=== PATIENT | female | born 1995 | race Caucasian/White ===

== ENCOUNTER 2017-01-25 03:15 | Inpatient (IN) | payer MEDICAID, OTHER ==
[2017-01-25] MEDS ORDERED: Sodium Chloride 0.9% 10 ML Syringe FLUSH PRN (08:37)
[2017-01-25] MEDS ORDERED: Nalbuphine 20 MG/1 ML Amp IVPUSH PRN (08:37)
[2017-01-25] MEDS ORDERED: Ondansetron 4 MG/2 ML SDV IVPUSH PRN ×2 (08:37→23:49)
--- NOTE | 2017-01-25 08:40 | PCM.LDHP ---
L&D History of Present Illness - General Date of Service: 01/25/17 Admit Problem/Dx: Patient Status Order with Admit Dx/Problem 01/25/17 08:38 Patient Status [ADT] Routine Admission Diagnosis/Problem Admission Diagnosis/Problem Normal in third trimester Source of Information: Patient History Limitations: Reports: No Limitations - History of Present Illness Introduction:: Patient is a 21 y/o at 41 1/7 wks who presents for IOL for dates. Doing well today. No contractions. Noting good FM. No other concerns. 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: : 1 Para: 0 LMP (Approximate): Psychiatric History: Reports: Anxiety, Depression Social & Family History - Family History Family Medical History: Noncontributory - Tobacco Use Smoking Status *Q: Former Smoker Years of Tobacco use: 6 Packs/Tins Daily: 1 Used Tobacco, but Quit: Yes Month Tobacco Last Used: <1 year - Caffeine Use Caffeine Use: Reports: Coffee - Alcohol Use Alcohol Use History: No - Recreational Drug Use Recreational Drug Use: Yes Drug Use in Last 12 Months: Yes Recreational Drug Type: Reports: Methamphetamine H&P Review of Systems - Review of Systems: Review Of Systems: See Below General: Reports: No Symptoms Pulmonary: Reports: No Symptoms Cardiovascular: Reports: No Symptoms Gastrointestinal: Reports: No Symptoms Genitourinary: Reports: No Symptoms Musculoskeletal: Reports: No Symptoms Psychiatric: Reports: Anxiety L&D Exam - Exam Exam: See Below - Vital Signs Vital Signs: Last Vital Signs Temp 36.9 C 01/25/17 07:45 Pulse 98 01/25/17 07:45 Resp 20 01/25/17 07:45 BP 131/89 01/25/17 07:45 Pulse Ox 99 01/25/17 07:45 Weight: 95.663 kg - OB Specific Contraction Intensity: Irritability Movement: Active Heart Tones: Present Heart Tones per Min: 135 Heart Rate (FHR) Variability: Moderate (6-25 bmp) Presentation: Vertex - Butcher Score Butcher Score Cervix Position: Posterior Butcher Score Consistency: Medium Butcher Score Effacement: 31-50% Butcher Score Dilation: 1-2 cm Butcher Score Infant's Station: -3 Butcher Score Total: 3 - Exam General: Alert, Oriented, Cooperative Lungs: Clear to Auscultation, Normal Respiratory Effort Cardiovascular: Regular Rate, Regular Rhythm GI/Abdominal Exam: Soft, Non-Tender Genitourinary: Normal external exam Extremities: Normal Inspection Skin: Warm, Dry, Intact - Patient Data Result Diagrams: 01/25/17 08:50 - Problem List (1) 41 weeks gestation of SNOMED Code(s): 64924457 ICD Code: Z3A.41 - 41 WEEKS GESTATION OF Status: Acute Current Visit: Yes (2) Imprisonment and other incarceration SNOMED Code(s): 99854884 ICD Code: Z65.1 - IMPRISONMENT AND OTHER INCARCERATION Status: Acute Current Visit: Yes Problem List Initiated/Reviewed/Updated: Yes Orders Last 24hrs: Active Orders 24 hr Category Date Time Status Patient Status [ADT] Routine ADT 01/25/17 08:38 Active Communication Order [RC] ASDIRECTED Care 01/25/17 08:37 Active Communication Order [RC] ASDIRECTED Care 01/25/17 08:37 Active Communication Order [RC] ASDIRECTED Care 01/25/17 08:37 Active Communication Order [RC] ASDIRECTED Care 01/25/17 08:37 Active Monitoring [RC] INTERMITTENT Care 01/25/17 08:37 Active Notify Provider [RC] ASDIRECTED Care 01/25/17 08:37 Active Notify Provider [RC] PRN Care 01/25/17 08:37 Active Peripheral IV Care [RC] . DIRECTED Care 01/25/17 08:38 Active Up ad Bharati [RC] ASDIRECTED Care 01/25/17 08:37 Active Vaginal Exam [RC] ASDIRECTED Care 01/25/17 08:37 Active Vital Signs [RC] ASDIRECTED Care 01/25/17 08:37 Active Vital Signs [RC] PER UNIT ROUTINE Care 01/25/17 08:37 Active Regular Diet [DIET] Diet 01/25/17 Lunch Active CBC W/O DIFF,HEMOGRAM [HEME] Routine Lab 01/25/17 08:37 Ordered TYPE AND SCREEN [BBK] Routine Lab 01/25/17 08:37 Ordered Lactated Ringers [Ringers, Lactated] 1,000 ml Med 01/25/17 08:45 Ordered IV ASDIRECTED Misoprostol [Cytotec] Med 01/25/17 08:37 Ordered 25 mcg VAG Q4H PRN Nalbuphine [Nubain] Med 01/25/17 08:37 Ordered 10 mg IVPUSH Q2H PRN Ondansetron [Zofran] Med 01/25/17 08:37 Ordered 4 mg IVPUSH Q4H PRN Oxytocin/Lactated Ringers [Pitocin in LR 10 Units/1,000 Med 01/25/17 08:45 Ordered ML] 10 unit in 1,000 ml IV .CONTINUOUS Oxytocin/Lactated Ringers [Pitocin in LR 10 Units/1,000 Med 01/25/17 08:45 Ordered ML] 10 unit in 1,000 ml IV TITRATE Sodium Chloride 0.9% [Saline Flush] Med 01/25/17 08:37 Ordered 10 ml FLUSH ASDIRECTED PRN Electronic Heart Tones Internal [WOMSER] Per Unit Oth 01/25/17 08:37 Ordered Routine Peripheral IV Insertion Adult [OM.PC] Routine Oth 01/25/17 08:37 Ordered Resuscitation Status Routine Resus Stat 01/25/17 08:37 Ordered Assessment/Plan Comment:: 21 y/o at 41 1/7 wks who presents for IOL for dates * CBC and T&S * GBS negative, no need for antibiotics * Pain management per patient preference * Cytotec to start IOL. Villanueva bulb when able. Pitocin when able.
[2017-01-25] MEDS ORDERED: Oxytocin/Lactated Ringers 10 UNIT/1,000 ML BAG IV SCH ×2 (08:45)
[2017-01-25] MEDS: Misoprostol 25 MCG (1/4 of 100 MCG) Tab VAG PRN ×3 (08:55→18:06)
[2017-01-25] MEDS: Lactated Ringers 1,000 ML IV SCH ×2 (11:30→22:29)
--- NOTE | 2017-01-25 21:41 | PCM.PNLD ---
Labor Progress Note - VS & Meds Vital Signs: Last Vital Signs Temp 36.9 C 01/25/17 07:45 Pulse 98 01/25/17 07:45 Resp 20 01/25/17 07:45 BP 131/89 01/25/17 07:45 Pulse Ox 99 01/25/17 07:45 Active Medications: Current Medications Lactated Ringer's (Ringers, Lactated) 1,000 mls @ 40 mls/hr IV ASDIRECTED AVI Last Admin: 01/25/17 11:30 Dose: 40 mls/hr Oxytocin/Lactated Ringer's (Pitocin In Lr 10 Units/1,000 Ml) 10 unit in 1,000 mls @ 12 mls/hr IV TITRATE AVI; 2 MUNITS/MIN PRN Reason: Protocol Oxytocin/Lactated Ringer's (Pitocin In Lr 10 Units/1,000 Ml) 10 unit in 1,000 mls @ 500 mls/hr IV .CONTINUOUS AVI Nalbuphine HCl (Nubain) 10 mg IVPUSH Q2H PRN PRN Reason: Pain (moderate 4-6) Ondansetron HCl (Zofran) 4 mg IVPUSH Q4H PRN PRN Reason: Nausea/Vomiting Sodium Chloride (Saline Flush) 10 ml FLUSH ASDIRECTED PRN PRN Reason: Keep Vein Open Discontinued Medications Misoprostol (Cytotec) 25 mcg VAG Q4H PRN PRN Reason: cervical ripening Last Admin: 01/25/17 18:06 Dose: 25 mcg - Uterine Contractions Uterine Monitoring Mode: External Golva Contraction Intensity: Irritability Uterine Resting Tone: Soft - Monitoring Monitor Mode: External Ultrasound Heart Rate (FHR) Variability: Moderate (6-25 bmp) Accelerations: Present, 10x10 (=/<32 wks) Decelerations: None Strip Review: Category I - Vaginal Exam Dilation (cm): 1 Effacement (Percent): 50 Station: -3 Cervical Position: Posterior - Labor Progress (Free Text) Labor Progress: Patient s/p 3 doses of cytotec. Most recent placed 2 hours ago. Villanueva bulb placed to facilitate induction process. Will place 4th cytotec in 2 hours. Afterwards will transition to pitocin.
[2017-01-25] MEDS ORDERED: Misoprostol 25 MCG (1/4 of 100 MCG) Tab VAG ONE (22:00)
[2017-01-25] MEDS ORDERED: Bupivacaine/fentaNYL/NS 100 ML Bag EPIDUR SCH (23:45)
[2017-01-25] MEDS ORDERED: diphenhydrAMINE 50 MG/ML SDV IVPUSH PRN (23:49)
[2017-01-25] MEDS ORDERED: ePHEDrine 50 MG/ML SDV IVPUSH PRN (23:49)
[2017-01-25] MEDS ORDERED: fentaNYL 100 MCG/2 ML SDV EPIDUR PRN (23:49)
--- NOTE | 2017-01-26 00:39 | PCM.PREANE ---
Preanesthetic Assessment - Procedure Proposed Procedure: BRIDGET - Anesthesia/Transfusion/Family Hx Anesthesia History: No Prior Anesthesia Family History of Anesthesia Reaction: No Transfusion History: No Prior Transfusion(s) - Review of Systems General: No Symptoms Pulmonary: No Symptoms Cardiovascular: No Symptoms Gastrointestinal: No Symptoms Neurological: No Symptoms Other: Reports: None - Physical Assessment NPO Status Date: 01/26/17 NPO Status Time: 00:05 O2 Sat by Pulse Oximetry: 99 Respiratory Rate: 20 Vital Signs: Last Vital Signs Temp 36.9 C 01/25/17 07:45 Pulse 98 01/25/17 07:45 Resp 20 01/25/17 07:45 BP 131/89 01/25/17 07:45 Pulse Ox 99 01/25/17 07:45 Height: 1.63 m Weight: 95.663 kg ASA Class: 2 Mental Status: Alert & Oriented x3 Airway Class: Mallampati = 1 Dentition: Reports: Normal Dentition Thyro-Mental Finger Breadths: 3 Mouth Opening Finger Breadths: 3 ROM/Head Extension: Full Lungs: Clear to Auscultation, Normal Respiratory Effort Cardiovascular: Regular Rate, Regular Rhythm - Lab Values: Laboratory Last Values WBC 8.46 K/mm3 (3.98-10.04) 01/25/17 08:50 RBC 3.98 M/mm3 (3.98-5.22) 01/25/17 08:50 Hgb 12.3 gm/L (11.2-15.7) 01/25/17 08:50 Hct 35.7 % (34.1-44.9) 01/25/17 08:50 MCV 89.7 fl (79.4-94.8) 01/25/17 08:50 MCH 30.9 pg (25.6-32.2) 01/25/17 08:50 MCHC 34.5 g/dl (32.2-35.5) 01/25/17 08:50 RDW Std Deviation 44.2 fL (36.4-46.3) 01/25/17 08:50 Plt Count 157 K/mm3 (182-369) L 01/25/17 08:50 MPV 11.5 fl (9.4-12.3) 01/25/17 08:50 Urine Color Yellow (Yellow) 01/25/17 08:40 Urine Appearance Clear (Clear) 01/25/17 08:40 Urine pH 7.0 (5.0-8.0) 01/25/17 08:40 Ur Specific Odonnell 1.025 (1.005-1.030) 01/25/17 08:40 Urine Protein Trace (Negative) H 01/25/17 08:40 Urine Glucose (UA) Negative (Negative) 01/25/17 08:40 Urine Ketones Negative (Negative) 01/25/17 08:40 Urine Occult Blood Negative (Negative) 01/25/17 08:40 Urine Nitrite Negative (Negative) 01/25/17 08:40 Urine Bilirubin Negative (Negative) 01/25/17 08:40 Urine Urobilinogen 0.2 (0.2-1.0) 01/25/17 08:40 Ur Leukocyte Esterase Negative (Negative) 01/25/17 08:40 Urine Opiates Screen Negative (NEGATIVE) 01/25/17 08:40 Ur Buprenorphine Scrn Negative (NEGATIVE) 01/25/17 08:40 Ur Oxycodone Screen Negative (NEGATIVE) 01/25/17 08:40 Urine Methadone Screen Negative (NEGATIVE) 01/25/17 08:40 Ur Propoxyphene Screen Negative (NEGATIVE) 01/25/17 08:40 Ur Barbiturates Screen Negative (NEGATIVE) 01/25/17 08:40 Ur Tricyclics Screen Negative (NEGATIVE) 01/25/17 08:40 Ur Phencyclidine Scrn Negative (NEGATIVE) 01/25/17 08:40 Ur Amphetamine Screen Negative (NEGATIVE) 01/25/17 08:40 U Methamphetamines Scrn Negative (NEGATIVE) 01/25/17 08:40 U Benzodiazepines Scrn Negative (NEGATIVE) 01/25/17 08:40 U Cocaine Metab Screen Negative (NEGATIVE) 01/25/17 08:40 U Marijuana (THC) Screen Negative (NEGATIVE) 01/25/17 08:40 MRSA (PCR) Negative 01/25/17 07:14 Blood Type A POSITIVE 01/25/17 08:50 Gel Antibody Screen Negative 01/25/17 08:50 - Allergies Allergies/Adverse Reactions: Allergies Allergy/AdvReac Type Severity Reaction Status Date / Time No Known Allergies 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 Current Meds: Current Medications Diphenhydramine HCl (Benadryl) 25 mg IVPUSH Q6H PRN PRN Reason: Pruritis Ephedrine Sulfate (Ephedrine Sulfate) 5 mg IVPUSH ASDIRECTED PRN PRN Reason: Hypotension Fentanyl (Sublimaze) 100 mcg EPIDUR Q3H PRN PRN Reason: Pain Last Admin: 01/26/17 00:19 Dose: 100 mcg Fentanyl/Bupivacaine HCl (Fentanyl/Bupivacaine/Ns 2 Mcg-0.125% 100 Ml) 100 ml EPIDUR ASDIRECTED AVI Last Admin: 01/26/17 00:19 Dose: 100 ml Lactated Ringer's (Ringers, Lactated) 1,000 mls @ 40 mls/hr IV ASDIRECTED AVI Last Admin: 01/25/17 22:29 Dose: 250 mls/hr Oxytocin/Lactated Ringer's (Pitocin In Lr 10 Units/1,000 Ml) 10 unit in 1,000 mls @ 12 mls/hr IV TITRATE AVI; 2 MUNITS/MIN PRN Reason: Protocol Oxytocin/Lactated Ringer's (Pitocin In Lr 10 Units/1,000 Ml) 10 unit in 1,000 mls @ 500 mls/hr IV .CONTINUOUS AVI Nalbuphine HCl (Nubain) 10 mg IVPUSH Q2H PRN PRN Reason: Pain (moderate 4-6) Ondansetron HCl (Zofran) 4 mg IVPUSH Q4H PRN PRN Reason: Nausea/Vomiting Ondansetron HCl (Zofran) 4 mg IVPUSH ONETIME PRN PRN Reason: Nausea/Vomiting Sodium Chloride (Saline Flush) 10 ml FLUSH ASDIRECTED PRN PRN Reason: Keep Vein Open Discontinued Medications Misoprostol (Cytotec) 25 mcg VAG Q4H PRN PRN Reason: cervical ripening Last Admin: 01/25/17 18:06 Dose: 25 mcg Misoprostol (Cytotec) 25 mcg VAG ONETIME ONE Stop: 01/25/17 22:01 Last Admin: 01/25/17 22:19 Dose: 25 mcg
--- NOTE | 2017-01-26 03:56 | PCM.DEL ---
L & D Note - General Info Date of Service: 01/26/17 - Delivery Note Cervical Ripening Method: Balloon Device, Misoprostil Delivery Outcome: Livebirth Delivery Method: Spontaneous Vaginal Delivery-Single Infant Delivery Mode: Spontaneous Presentation: Right Occiput Anterior (LYLY) Nuchal Cord: None Anesthesia Type: Epidural Amniotic Fluid Description: Clear Episiotomy Type: None Laceration: 2nd Degree, Perineal Suture type: Vicryl Suture size: 2-0 Placenta: Intact, Spontaneous Cord: 3 Vessels Estimated Blood Loss: 500 Resuscitation Needed: Yes : Suctioned, Bulb Syringe, Stimulated, Warmed, Garfield Used, Warmer Used Score 1 min: 5 Score 5 min: 9 Post Delivery Events: Shoulder Dystocia Delivery Comments (Free Text/Narrative):: Patient found to be complete and began pushing. With maternal pushing effort head delivered from an LYLY presentation. No nuchal cord present. With gentle downward traction the head did not deliver. Diagnosis of shoulder dystocia made. Patient legs placed in McRobert's and suprapubic pressure applied without delivery of the anterior shoulder. Attempt made to pass a hand on the anterior shoulder and rotate the fetus, but patient with significant discomfort and could not tolerate. A hand was then placed posteriorly and traction placed on the posterior arm. Arm did not deliver, but with this motion the fetus did rotate and delivery did occur. Total duration of dystocia about 60 seconds. Baby noted to be limp and so cord cut and clamped and baby taken immediately to warmer for assessment. Cord blood collected. Placenta allowed time to separate and expelled. Moderate amount of bleeding encountered and so sweep of the lower uterine segment performed to aid in uterine involution. Inspection of the perineum then showed a 2nd degree laceration which involved the skin of the perineum down to the rectum. Rectal exam performed to confirm no injury/disruption of the rectal mucosa. This tear was repaired with a running 2-0 vicryl in the typical fashion - Patient Data Vitals - Most Recent: Last Vital Signs Temp 36.9 C 01/25/17 07:45 Pulse 98 01/25/17 07:45 Resp 20 01/26/17 00:39 BP 131/89 01/25/17 07:45 Pulse Ox 99 01/26/17 00:39 Weight - Most Recent: 95.663 kg I&O - Last 24 Hours: Intake & Output 01/25/17 01/25/17 01/26/17 14:59 22:59 06:59 Intake Total 570 180 Balance 570 180 Lab Results Last 24 Hours: Laboratory Results - last 24 hr 01/25/17 01/25/17 01/25/17 Range/Units 07:14 08:40 08:40 WBC (3.98-10.04) K/mm3 RBC (3.98-5.22) M/mm3 Hgb (11.2-15.7) gm/L Hct (34.1-44.9) % MCV (79.4-94.8) fl MCH (25.6-32.2) pg MCHC (32.2-35.5) g/dl RDW Std Deviation (36.4-46.3) fL Plt Count (182-369) K/mm3 MPV (9.4-12.3) fl Urine Color Yellow (Yellow) Urine Appearance Clear (Clear) Urine pH 7.0 (5.0-8.0) Ur Specific Clifford 1.025 (1.005-1.030) Urine Protein Trace H (Negative) Urine Glucose (UA) Negative (Negative) Urine Ketones Negative (Negative) Urine Occult Blood Negative (Negative) Urine Nitrite Negative (Negative) Urine Bilirubin Negative (Negative) Urine Urobilinogen 0.2 (0.2-1.0) Ur Leukocyte Esterase Negative (Negative) Urine Opiates Screen Negative (NEGATIVE) Ur Buprenorphine Scrn Negative (NEGATIVE) Ur Oxycodone Screen Negative (NEGATIVE) Urine Methadone Screen Negative (NEGATIVE) Ur Propoxyphene Screen Negative (NEGATIVE) Ur Barbiturates Screen Negative (NEGATIVE) Ur Tricyclics Screen Negative (NEGATIVE) Ur Phencyclidine Scrn Negative (NEGATIVE) Ur Amphetamine Screen Negative (NEGATIVE) U Methamphetamines Scrn Negative (NEGATIVE) U Benzodiazepines Scrn Negative (NEGATIVE) U Cocaine Metab Screen Negative (NEGATIVE) U Marijuana (THC) Screen Negative (NEGATIVE) MRSA (PCR) Negative Blood Type Gel Antibody Screen 01/25/17 01/25/17 Range/Units 08:50 08:50 WBC 8.46 (3.98-10.04) K/mm3 RBC 3.98 (3.98-5.22) M/mm3 Hgb 12.3 (11.2-15.7) gm/L Hct 35.7 (34.1-44.9) % MCV 89.7 (79.4-94.8) fl MCH 30.9 (25.6-32.2) pg MCHC 34.5 (32.2-35.5) g/dl RDW Std Deviation 44.2 (36.4-46.3) fL Plt Count 157 L (182-369) K/mm3 MPV 11.5 (9.4-12.3) fl Urine Color (Yellow) Urine Appearance (Clear) Urine pH (5.0-8.0) Ur Specific Clifford (1.005-1.030) Urine Protein (Negative) Urine Glucose (UA) (Negative) Urine Ketones (Negative) Urine Occult Blood (Negative) Urine Nitrite (Negative) Urine Bilirubin (Negative) Urine Urobilinogen (0.2-1.0) Ur Leukocyte Esterase (Negative) Urine Opiates Screen (NEGATIVE) Ur Buprenorphine Scrn (NEGATIVE) Ur Oxycodone Screen (NEGATIVE) Urine Methadone Screen (NEGATIVE) Ur Propoxyphene Screen (NEGATIVE) Ur Barbiturates Screen (NEGATIVE) Ur Tricyclics Screen (NEGATIVE) Ur Phencyclidine Scrn (NEGATIVE) Ur Amphetamine Screen (NEGATIVE) U Methamphetamines Scrn (NEGATIVE) U Benzodiazepines Scrn (NEGATIVE) U Cocaine Metab Screen (NEGATIVE) U Marijuana (THC) Screen (NEGATIVE) MRSA (PCR) Blood Type A POSITIVE Gel Antibody Screen Negative Med Orders - Current: Current Medications Diphenhydramine HCl (Benadryl) 25 mg IVPUSH Q6H PRN PRN Reason: Pruritis Ephedrine Sulfate (Ephedrine Sulfate) 5 mg IVPUSH ASDIRECTED PRN PRN Reason: Hypotension Fentanyl (Sublimaze) 100 mcg EPIDUR Q3H PRN PRN Reason: Pain Last Admin: 01/26/17 00:19 Dose: 100 mcg Fentanyl/Bupivacaine HCl (Fentanyl/Bupivacaine/Ns 2 Mcg-0.125% 100 Ml) 100 ml EPIDUR ASDIRECTED AVI Last Admin: 01/26/17 00:19 Dose: 100 ml Lactated Ringer's (Ringers, Lactated) 1,000 mls @ 40 mls/hr IV ASDIRECTED AVI Last Admin: 01/25/17 22:29 Dose: 250 mls/hr Oxytocin/Lactated Ringer's (Pitocin In Lr 10 Units/1,000 Ml) 10 unit in 1,000 mls @ 12 mls/hr IV TITRATE AVI; 2 MUNITS/MIN PRN Reason: Protocol Oxytocin/Lactated Ringer's (Pitocin In Lr 10 Units/1,000 Ml) 10 unit in 1,000 mls @ 500 mls/hr IV .CONTINUOUS AVI Nalbuphine HCl (Nubain) 10 mg IVPUSH Q2H PRN PRN Reason: Pain (moderate 4-6) Ondansetron HCl (Zofran) 4 mg IVPUSH Q4H PRN PRN Reason: Nausea/Vomiting Ondansetron HCl (Zofran) 4 mg IVPUSH ONETIME PRN PRN Reason: Nausea/Vomiting Sodium Chloride (Saline Flush) 10 ml FLUSH ASDIRECTED PRN PRN Reason: Keep Vein Open Discontinued Medications Misoprostol (Cytotec) 25 mcg VAG Q4H PRN PRN Reason: cervical ripening Last Admin: 01/25/17 18:06 Dose: 25 mcg Misoprostol (Cytotec) 25 mcg VAG ONETIME ONE Stop: 01/25/17 22:01 Last Admin: 01/25/17 22:19 Dose: 25 mcg - Problem List & Annotations (1) 41 weeks gestation of SNOMED Code(s): 75886130 Code(s): Z3A.41 - 41 WEEKS GESTATION OF Status: Acute Current Visit: Yes (2) Imprisonment and other incarceration SNOMED Code(s): 87337354 Code(s): Z65.1 - IMPRISONMENT AND OTHER INCARCERATION Status: Acute Current Visit: Yes (3) Shoulder dystocia during labor and delivery, delivered SNOMED Code(s): 39569029 Code(s): O66.0 - OBSTRUCTED LABOR DUE TO SHOULDER DYSTOCIA Status: Acute Current Visit: Yes (4) Vaginal delivery SNOMED Code(s): 093659075 Code(s): O80 - ENCOUNTER FOR FULL-TERM UNCOMPLICATED DELIVERY Status: Acute Current Visit: Yes - Problem List Review Problem List Initiated/Reviewed/Updated: Yes - My Orders Last 24 Hours: My Active Orders 01/25/17 08:37 Nalbuphine [Nubain] 10 mg IVPUSH Q2H PRN Ondansetron [Zofran] 4 mg IVPUSH Q4H PRN Sodium Chloride 0.9% [Saline Flush] 10 ml FLUSH ASDIRECTED PRN Electronic Heart Tones Internal [WOMSER] Per Unit Routine Peripheral IV Insertion Adult [OM.PC] Routine Resuscitation Status Routine 01/25/17 08:38 Patient Status [ADT] Routine Peripheral IV Care [RC] . DIRECTED 01/25/17 08:45 Lactated Ringers [Ringers, Lactated] 1,000 ml IV ASDIRECTED Oxytocin/Lactated Ringers [Pitocin in LR 10 Units/1,000 ML] 10 unit in 1,000 ml IV .CONTINUOUS Oxytocin/Lactated Ringers [Pitocin in LR 10 Units/1,000 ML] 10 unit in 1,000 ml IV TITRATE 01/25/17 19:06 Consult to Boat Person [CONS] Routine 01/25/17 Lunch Regular Diet [DIET] - Assessment Assessment:: 21 y/o G1 now P1001 PPD#0 from [facility] at 41 2/7 wks - Plan Plan:: * Routine cares * Bottle feeding * Reviewed risk of recurrence of shoulder dystocia * Discharge home tomorrow
[2017-01-26] MEDS ORDERED: Lanolin 100% Cream 7 GM Tube TOP PRN (04:09)
[2017-01-26] MEDS ORDERED: Witch Hazel Medicated Pads 100/Jar TOP PRN (04:09)
[2017-01-26] MEDS ORDERED: Acetaminophen 325 MG Tab PO PRN (04:09)
[2017-01-26] MEDS ORDERED: Docusate Sodium 100 MG Cap PO PRN (04:09)
[2017-01-26] MEDS: Benzocaine/Menthol 20%-0.5% Spray 56 GM Canister TOP PRN (04:30)
[2017-01-26] MEDS: Ibuprofen 600 MG Tab PO PRN ×3 (04:32→18:56)
--- NOTE | 2017-01-26 07:51 | PCM48HPAN ---
Post Anesthesia Note - EVALUATION WITHIN 48HRS OF ANESTHETIC Vital Signs in Normal Range: Yes Patient Participated in Evaluation: Yes Respiratory Function Stable: Yes Airway Patent: Yes Cardiovascular Function Stable: Yes Hydration Status Stable: Yes Pain Control Satisfactory: Yes Nausea and Vomiting Control Satisfactory: Yes Mental Status Recovered: Yes
[2017-01-26] MEDS ORDERED: FLU Vacc QS 2017-18 (6mos UP)/PF 60 MCG/0.5 ML Syringe IM ONE (20:10)
[2017-01-27] MEDS: Ibuprofen 600 MG Tab PO PRN (05:04)
--- NOTE | 2017-01-27 07:08 | PCM.PNPP ---
- General Info Date of Service: 01/27/17 Functional Status: Reports: Pain Controlled, Tolerating Diet, Ambulating, Urinating - Review of Systems General: Reports: No Symptoms Pulmonary: Reports: No Symptoms Cardiovascular: Reports: No Symptoms Gastrointestinal: Reports: No Symptoms Genitourinary: Reports: Other (Some discomfort in perineum, but manageable ) - Patient Data Vital Signs - Most Recent: Last Vital Signs Temp 36.7 C 01/27/17 04:00 Pulse 70 01/27/17 03:58 Resp 20 01/27/17 03:58 BP 110/72 01/27/17 04:00 Pulse Ox 97 01/27/17 03:58 Weight - Most Recent: 95.663 kg I&O - Last 24 Hours: Intake & Output 01/26/17 01/27/17 01/27/17 22:59 06:59 14:59 Intake Total 600 Balance 600 Med Orders - Current: Current Medications Acetaminophen (Tylenol) 650 mg PO Q4H PRN PRN Reason: mild pain or fever Last Admin: 01/26/17 20:22 Dose: 650 mg Benzocaine/Menthol (Dermoplast Pain Relief [place]) 0 gm TOP ASDIRECTED PRN PRN Reason: Perineal Comfort Measure Last Admin: 01/26/17 04:30 Dose: 1 applic Docusate Sodium (Colace) 100 mg PO BID PRN PRN Reason: Constipation Emollient Ointment (Lansinoh Hpa) 0 gm TOP ASDIRECTED PRN PRN Reason: Sore Nipples Ibuprofen (Motrin) 600 mg PO Q6H PRN PRN Reason: Mild pain or fever Last Admin: 01/27/17 05:04 Dose: 600 mg Witch Mallory (Tucks) 1 pad TOP ASDIRECTED PRN PRN Reason: Hemorrhoid pain Last Admin: 01/26/17 04:31 Dose: 1 applic Discontinued Medications Diphenhydramine HCl (Benadryl) 25 mg IVPUSH Q6H PRN PRN Reason: Pruritis Ephedrine Sulfate (Ephedrine Sulfate) 5 mg IVPUSH ASDIRECTED PRN PRN Reason: Hypotension Fentanyl (Sublimaze) 100 mcg EPIDUR Q3H PRN PRN Reason: Pain Last Admin: 01/26/17 00:19 Dose: 100 mcg Fentanyl/Bupivacaine HCl (Fentanyl/Bupivacaine/Ns 2 Mcg-0.125% 100 Ml) 100 ml EPIDUR ASDIRECTED [facility]I Last Admin: 01/26/17 00:19 Dose: 100 ml Lactated Ringer's (Ringers, Lactated) 1,000 mls @ 40 mls/hr IV ASDIRECTED [facility]I Last Admin: 01/25/17 22:29 Dose: 250 mls/hr Oxytocin/Lactated Ringer's (Pitocin In Lr 10 Units/1,000 Ml) 10 unit in 1,000 mls @ 12 mls/hr IV TITRATE AVI; 2 MUNITS/MIN PRN Reason: Protocol Oxytocin/Lactated Ringer's (Pitocin In Lr 10 Units/1,000 Ml) 10 unit in 1,000 mls @ 500 mls/hr IV .CONTINUOUS AVI Last Admin: 01/26/17 03:15 Dose: 500 mls/hr Influenza Virus Vaccine (Flulaval Quad [id number]) 60 mcg IM .ONCE ONE Stop: 01/26/17 20:11 Last Admin: 01/26/17 20:13 Dose: 60 mcg Misoprostol (Cytotec) 25 mcg VAG Q4H PRN PRN Reason: cervical ripening Last Admin: 01/25/17 18:06 Dose: 25 mcg Misoprostol (Cytotec) 25 mcg VAG ONETIME ONE Stop: 01/25/17 22:01 Last Admin: 01/25/17 22:19 Dose: 25 mcg Nalbuphine HCl (Nubain) 10 mg IVPUSH Q2H PRN PRN Reason: Pain (moderate 4-6) Ondansetron HCl (Zofran) 4 mg IVPUSH Q4H PRN PRN Reason: Nausea/Vomiting Ondansetron HCl (Zofran) 4 mg IVPUSH ONETIME PRN PRN Reason: Nausea/Vomiting Sodium Chloride (Saline Flush) 10 ml FLUSH ASDIRECTED PRN PRN Reason: Keep Vein Open - Infant Interaction Disposition, : in Room with Family Infant Interaction: Holding Feeding: Bottle Fed Support Person: Mother, Other (see below) - Recovery Exam Fundal Tone: Firm Fundal Level: 2 Fingerbreadths Below Umbilicus Fundal Placement: Midline Lochia Amount: Small Lochia Color: Rubra/Red Perineum Description: Edematous, Other (see below) Other Perinuem Description: Second degree with repair Episiotomy/Laceration: Approximated Bladder Status: Voiding Urinary Elimination: Voided - Exam General: Alert, Oriented, Cooperative GI/Abdominal Exam: Soft, Non-Tender Extremities: Normal Inspection - Problem List & Annotations (1) 41 weeks gestation of SNOMED Code(s): 76114821 Code(s): Z3A.41 - 41 WEEKS GESTATION OF Status: Acute (2) Imprisonment and other incarceration SNOMED Code(s): 73136140 Code(s): Z65.1 - IMPRISONMENT AND OTHER INCARCERATION Status: Acute (3) Shoulder dystocia during labor and delivery, delivered SNOMED Code(s): 05518913 Code(s): O66.0 - OBSTRUCTED LABOR DUE TO SHOULDER DYSTOCIA Status: Acute (4) Vaginal delivery SNOMED Code(s): 301577794 Code(s): O80 - ENCOUNTER FOR FULL-TERM UNCOMPLICATED DELIVERY Status: Acute - Problem List Review Problem List Initiated/Reviewed/Updated: Yes - My Orders Last 24 Hours: My Active Orders 01/26/17 Breakfast Regular Diet [DIET] 01/27/17 04:09 Heat Therapy [OM.PC] PRN - Assessment Assessment:: 21 y/o G1 now P1001 PPD#1 from [facility] at 41 2/7 wks - Plan Plan:: * Routine cares * Bottle feeding * Previously reviewed risk of recurrence of shoulder dystocia. She has no follow up questions today * Discharge today
--- NOTE | 2017-01-27 07:09 | PCM.DCSUM1 ---
Discharge Summary - Discharge Data Discharge Date: 01/27/17 Discharge Disposition: DC/Tfer to [facility] Enf 21 Condition: Good - Discharge Diagnosis/Problem(s) (1) 41 weeks gestation of SNOMED Code(s): 05822094 ICD Code: Z3A.41 - 41 WEEKS GESTATION OF Status: Acute (2) Imprisonment and other incarceration SNOMED Code(s): 84728696 ICD Code: Z65.1 - IMPRISONMENT AND OTHER INCARCERATION Status: Acute (3) Shoulder dystocia during labor and delivery, delivered SNOMED Code(s): 32553151 ICD Code: O66.0 - OBSTRUCTED LABOR DUE TO SHOULDER DYSTOCIA Status: Acute (4) Vaginal delivery SNOMED Code(s): 993472555 ICD Code: O80 - ENCOUNTER FOR FULL-TERM UNCOMPLICATED DELIVERY Status: Acute - Patient Summary/Data Complications: None Consults: Consultations 01/26/17 05:30 Consult to [employer] [CONS] Routine Recommended Follow-up Testing/Procedures: Follow up in 4-6 weeks for check Hospital Course: Patient is a 21 y/o at 41 1/7 wks who presented for IOL. This was done with cytotec and schumacher bulb. She did not require further augmentation. She progressed well to complete dilation and underwent a vaginal delivery complicated by a 60 second shoulder dystocia. See delivery note for full details. she did well and was discharged back to her correctional facility on PPD#1 - Patient Instructions Diet: Regular Diet as Tolerated Activity: As Tolerated Activity, Other: Pelvic Rest for 6 weeks Driving: May Drive Today Showering/Bathing: May Shower Notify Provider of: Fever, Increased Pain, Swelling and Redness, Drainage, Nausea and/or Vomiting - Discharge Plan Home Medications: Home Meds Docusate Sodium [Colace] 100 mg PO BID PRN cap 01/26/17 [Rx] Ibuprofen [IJD: Ibuprofen] 600 mg PO Q6H PRN tablet 01/26/17 [Rx] Patient Handouts: Vaginal Delivery, Care After Referrals: Rehana Gonzalez MD [Primary Care Provider] - (5-6 weeks for check ) - Discharge Summary/Plan Comment DC Time >30 min.: No - Patient Data Vitals - Most Recent: Last Vital Signs Temp 36.7 C 01/27/17 04:00 Pulse 70 01/27/17 03:58 Resp 20 01/27/17 03:58 BP 110/72 01/27/17 04:00 Pulse Ox 97 01/27/17 03:58 Weight - Most Recent: 95.663 kg I&O - Last 24 hours: Intake & Output 01/26/17 01/27/17 01/27/17 22:59 06:59 14:59 Intake Total 600 Balance 600 Med Orders - Current: Current Medications Acetaminophen (Tylenol) 650 mg PO Q4H PRN PRN Reason: mild pain or fever Last Admin: 01/26/17 20:22 Dose: 650 mg Benzocaine/Menthol (Dermoplast Pain Relief [place]) 0 gm TOP ASDIRECTED PRN PRN Reason: Perineal Comfort Measure Last Admin: 01/26/17 04:30 Dose: 1 applic Docusate Sodium (Colace) 100 mg PO BID PRN PRN Reason: Constipation Emollient Ointment (Lansinoh Hpa) 0 gm TOP ASDIRECTED PRN PRN Reason: Sore Nipples Ibuprofen (Motrin) 600 mg PO Q6H PRN PRN Reason: Mild pain or fever Last Admin: 01/27/17 05:04 Dose: 600 mg Witch Mallory (Tucks) 1 pad TOP ASDIRECTED PRN PRN Reason: Hemorrhoid pain Last Admin: 01/26/17 04:31 Dose: 1 applic Discontinued Medications Diphenhydramine HCl (Benadryl) 25 mg IVPUSH Q6H PRN PRN Reason: Pruritis Ephedrine Sulfate (Ephedrine Sulfate) 5 mg IVPUSH ASDIRECTED PRN PRN Reason: Hypotension Fentanyl (Sublimaze) 100 mcg EPIDUR Q3H PRN PRN Reason: Pain Last Admin: 01/26/17 00:19 Dose: 100 mcg Fentanyl/Bupivacaine HCl (Fentanyl/Bupivacaine/Ns 2 Mcg-0.125% 100 Ml) 100 ml EPIDUR ASDIRECTED [facility] Last Admin: 01/26/17 00:19 Dose: 100 ml Lactated Ringer's (Ringers, Lactated) 1,000 mls @ 40 mls/hr IV ASDIRECTED [facility] Last Admin: 01/25/17 22:29 Dose: 250 mls/hr Oxytocin/Lactated Ringer's (Pitocin In Lr 10 Units/1,000 Ml) 10 unit in 1,000 mls @ 12 mls/hr IV TITRATE AVI; 2 MUNITS/MIN PRN Reason: Protocol Oxytocin/Lactated Ringer's (Pitocin In Lr 10 Units/1,000 Ml) 10 unit in 1,000 mls @ 500 mls/hr IV .CONTINUOUS AVI Last Admin: 01/26/17 03:15 Dose: 500 mls/hr Influenza Virus Vaccine (Flulaval Quad [id number]) 60 mcg IM .ONCE ONE Stop: 01/26/17 20:11 Last Admin: 01/26/17 20:13 Dose: 60 mcg Misoprostol (Cytotec) 25 mcg VAG Q4H PRN PRN Reason: cervical ripening Last Admin: 01/25/17 18:06 Dose: 25 mcg Misoprostol (Cytotec) 25 mcg VAG ONETIME ONE Stop: 01/25/17 22:01 Last Admin: 01/25/17 22:19 Dose: 25 mcg Nalbuphine HCl (Nubain) 10 mg IVPUSH Q2H PRN PRN Reason: Pain (moderate 4-6) Ondansetron HCl (Zofran) 4 mg IVPUSH Q4H PRN PRN Reason: Nausea/Vomiting Ondansetron HCl (Zofran) 4 mg IVPUSH ONETIME PRN PRN Reason: Nausea/Vomiting Sodium Chloride (Saline Flush) 10 ml FLUSH ASDIRECTED PRN PRN Reason: Keep Vein Open *Q Meaningful Use (DIS) - VTE *Q VTE Criteria *Q: - Stroke *Q Stroke Criteria *Q: - AMI *Q AMI Criteria *Q:
[2017-01-27] MEDS: Benzocaine/Menthol 20%-0.5% Spray 56 GM Canister TOP PRN (09:13)
[2017-01-27 11:03] VITALS: BP 109/78
== END 2017-01-27 10:26 | DRG 775 ==
LOC: JD.OB 03:15 → EEVIPCON 01-26 03:15 → OBSVTOIN 01-26 03:15
PROVIDERS: ADMIT Obstetrics & Gynecology; ATTEND Obstetrics & Gynecology
PROC: 10E0XZZ Delivery of Products of Conception, External Approach (ICD-10-PCS; principal; 2017-01-26)
PROC: 0KQM0ZZ Repair Perineum Muscle, Open Approach (ICD-10-PCS; 2017-01-26)
PROC: 3E0P7VZ Introduction of Hormone into Female Reproductive, Via Natural or Artificial Opening (ICD-10-PCS; 2017-01-26)
PROC: 00HU33Z Insertion of Infusion Device into Spinal Canal, Percutaneous Approach (ICD-10-PCS; 2017-01-26)
PROC: 3E0R3BZ Introduction of Anesthetic Agent into Spinal Canal, Percutaneous Approach (ICD-10-PCS; 2017-01-26)
PROC: 3E0234Z Introduction of Serum, Toxoid and Vaccine into Muscle, Percutaneous Approach (ICD-10-PCS; 2017-01-26)
DX: O48.0 Post-term pregnancy (principal); Z37.0 Single live birth; Z3A.41 41 weeks gestation of pregnancy; Z87.891 Personal history of nicotine dependence; Z23 Encounter for immunization; O70.1 Second degree perineal laceration during delivery; O66.0 Obstructed labor due to shoulder dystocia
CPT/HCPCS: 36415; 51701; 59409; 80306; 81003; 85027; 86850; 86900; 86901; 87641; 90686; A9270-GY; J2590; J3010; J7120